=== PATIENT | male | born 1950 | race Two or more races ===

== ENCOUNTER 2018-06-30 09:40 | Outpatient (CLI) | payer OTHER | END 2018-06-30 09:47 | disposition home or self-care (01) | LOC: RAD 09:40 | DX: M15.0 Primary generalized (osteo)arthritis (principal); D21.12 Benign neoplasm of connective and other soft tissue of left upper limb, including shoulder ==

== ENCOUNTER 2018-07-22 07:59 | Outpatient (CLI) | payer OTHER | END 2018-07-22 08:38 | disposition home or self-care (01) | LOC: MRI 07:59 | DX: M54.5 Low back pain (principal) | CPT/HCPCS: 72148 ==

== ENCOUNTER 2020-07-24 12:46 | Emergency (ER) | payer OTHER ==
[~2020-07-24] VITALS: Ht 170.2 cm; Wt 86.2 kg
[2020-07-24] MEDS ORDERED: COZAAR50 MG (13:13)
[2020-07-24] MEDS ORDERED: ASPIR 8181 MG (13:13)
[2020-07-24] MEDS ORDERED: TOPROL XL100 M1 (13:13)
[2020-07-24] MEDS ORDERED: PERCOCET 5-3251 EACH PO (18:05)
[2020-07-24] MEDS ORDERED: ORPHENADRINE C100 MG PO (18:05)
== END 2020-07-24 18:13 | disposition home or self-care (01) ==
LOC: ER 12:46
DX: S70.02XA Contusion of left hip, initial encounter (principal); M54.5 Low back pain; W18.09XA Striking against other object with subsequent fall, initial encounter; Y93.89 Activity, other specified; Y92.098 Other place in other non-institutional residence as the place of occurrence of the external cause; Y99.8 Other external cause status